=== PATIENT | female | born 1955 | race Hispanic/Latino ===

== ENCOUNTER → 2024-01-12 | Outpatient (CLI) | payer OTHER ==
[2024-01-12 12:25] LABS: CREATININE 0.9 mg/dL (0.5-1.0); POTASSIUM 4.1 mmol/L (3.5-5.1)
== END | disposition home or self-care (01) ==
LOC: LAB 09:08
PROVIDERS: ATTEND Internal Medicine Cardiovascular Disease
DX: I20.0 Unstable angina (principal)
CPT/HCPCS: 36415; 80048

== ENCOUNTER → 2024-01-22 | Outpatient (CLI) | payer OTHER ==
[~2024-01-22] MED LIST: IOHEXOL 350 MG/ML 100ML INFUS..BTL IV ONE
== END | disposition home or self-care (01) ==
LOC: RAH 07:49
PROVIDERS: ATTEND Internal Medicine Cardiovascular Disease
DX: I25.110 Atherosclerotic heart disease of native coronary artery with unstable angina pectoris (principal); M47.815 Spondylosis without myelopathy or radiculopathy, thoracolumbar region; K44.9 Diaphragmatic hernia without obstruction or gangrene
CPT/HCPCS: 75574; Q9967

== ENCOUNTER → 2024-02-12 | Outpatient (CLI) | payer OTHER | END | disposition home or self-care (01) | LOC: SHCH 14:33 | PROVIDERS: ATTEND Internal Medicine Cardiovascular Disease | DX: I08.3 Combined rheumatic disorders of mitral, aortic and tricuspid valves (principal); I20.0 Unstable angina; I11.9 Hypertensive heart disease without heart failure; E11.9 Type 2 diabetes mellitus without complications | CPT/HCPCS: 93306 ==

== ENCOUNTER → 2024-02-20 | Outpatient (CLI) | payer OTHER | END | disposition home or self-care (01) | LOC: SHCH 10:36 | PROVIDERS: ATTEND Internal Medicine Cardiovascular Disease | DX: I73.9 Peripheral vascular disease, unspecified (principal) | CPT/HCPCS: 93925 ==

== ENCOUNTER → 2024-06-19 | Outpatient (CLI) | payer OTHER | END | disposition home or self-care (01) | LOC: LAB 10:30 | PROVIDERS: ATTEND Otolaryngology Plastic Surgery within the Head & Neck | DX: H90.3 Sensorineural hearing loss, bilateral (principal) | CPT/HCPCS: 36415; 82565; 84520 ==

== ENCOUNTER → 2024-06-25 | Outpatient (CLI) | payer OTHER ==
[~2024-06-25] MED LIST changes: +GADOTERATE MEGLUMINE 10 MMOL/20 ML VIAL IV ONE; -IOHEXOL 350 MG/ML 100ML INFUS..BTL IV ONE
== END | disposition home or self-care (01) ==
LOC: RAH 12:48
PROVIDERS: ATTEND Otolaryngology Plastic Surgery within the Head & Neck
DX: H90.3 Sensorineural hearing loss, bilateral (principal)
CPT/HCPCS: 70553; A9575

== ENCOUNTER 2024-11-16 14:36 | Emergency (ER) | payer OTHER ==
[~2024-11-16] VITALS: Ht 152.4 cm; Wt 89.8 kg
[2024-11-16 15:08] VITALS: BP 175/85; PULSE 76; RESP 14; TEMP 98; O2SAT 97
[2024-11-16] MEDS: HYDROcodone/APAP 5/325 1 TAB TABLET PO ONE (15:19)
[2024-11-16] MEDS: ketOROlac 15MG/ML VIAL (15MG/ML) IM ONE (15:19)
[2024-11-16] MEDS ORDERED: METH4TAB3 PO (16:04)
[2024-11-16] MEDS ORDERED: HYDR-4060 PO (16:04)
[2024-11-16] MEDS ORDERED: TIZA-211 PO (16:04)
--- NOTE | 2024-11-16 16:07 | ERN ---
General Chief Complaint: Shoulder Injury/Pain Stated Complaint: SHOULDER PAIN, BACK PAIN Time Seen by MD: 14:40 History of Present Illness Initial Comments 69-year-old female, long history osteoarthritis with flare-ups, history of rheumatoid disease, who presents for right shoulder and right cervical spine pain. Patient reports this is a flare-up of her chronic arthritis pains. She has been using to and has a Cosme and Tylenol for pain. She has been unable to take NSAIDs. She has been using Voltaren gel and Salonpas patches. She has been using ice. She reports that she had an injection into the shoulder about four months ago by floor coverer apprentice, but she feels like it is wearing off causing your pain. She denies any trauma or injury. Neurovascularly intact. No other complaints. Otherwise normal state of health Allergies: Coded Allergies: celecoxib (Unverified Allergy, Unknown, 11/16/24) ibuprofen (Unverified Allergy, Unknown, 11/16/24) Home Meds Active Scripts Tizanidine HCl (Tizanidine HCl) 4 Mg Tablet, 1 TAB PO BID for 30 Days, #60 TAB 0 Refills Prov:BHUMI CORONADO DO 11/16/24 Hydrocodone/Acetaminophen (Hydrocodon-Acetaminophen 5-325) 5 Mg-325 Mg Tablet, 1-2 TAB PO TIDP PRN for pain for 10 Days, #30 TAB 0 Refills Prov:BHUMI CORONADO DO 11/16/24 Methylprednisolone (Medrol) 4 Mg Tab.ds.pk, 1 TAB PO AD for 6 Days, #21 TAB 0 Refills 6 on day 1 then reduce by one tablet daily until gone Prov:BHUMI CORONADO DO 11/16/24 Past Medical History Past Medical History: Arthritis, Asthma, Diabetes-Type II, Hypertension Past Surgical History: Appendectomy, Hysterectomy, Surgical History Other: CYST REMOVAL, LEFT KNEE ROS Dictation CONSTITUTIONAL: No chills, no fever, no weakness, no diaphoresis, no malaise. HEAD/FACE: No signs of trauma. EENT: No eye pain, no blurred vision, no tearing, no double vision, no ear pain, no ear discharge, no nose pain, no nasal congestion, no throat pain, no throat swelling, no mouth pain. RESPIRATORY: No cough, no orthopnea, no SOB, no stridor, no wheezing. CARDIOVASCULAR: No chest pain, no edema, no palpitations, no syncope. GASTROINTESTINAL/ABDOMINAL: No abdominal pain, no constipation, no diarrhea, no nausea, no vomiting. GENITOURINARY: No abnormal discharge, no dysuria, no frequent urination, no hematuria. No complaints of pain in the genitals. MUSCULOSKELETAL: Right arm and shoulder pain INTEGUMENTARY: No change in color, no change in hair/nails, no dryness, no lesion, no lumps, no rash. NEUROLOGICAL/PSYCH: No anxiety, not depressed, no emotional problem, no headache, no numbness, no pre-existing deficit, no history of seizures, no tremors, no weakness. HEMATOLOGIC/LYMPHATIC: Not anemic, no history of blood clots, no apparent bleeding, no bruising, glands not swollen. All Systems Negative, Except as Noted. Physical Exam Physical Exam Dictation VITAL SIGNS: Reviewed. GENERAL APPEARANCE: Alert, oriented x3, no acute distress, obese. HEAD AND FACE: Non-traumatic. EYES: PERRL, pink conjunctivas, eyelid no trauma, anterior chamber clear. EARS: Pinnas intact and no signs of trauma or erythema. Ear canals clear and no discharge. TMs no erythema. NOSE: No discharge, no bleeding. OROPHARYNX: Mouth normal, teeth no caries, tongue pink. Pharynx clear, no erythema. Tonsils no exudates, no abscesses noted. Mucous membrane moist. NECK: Supple, non-tender, no thyromegaly, no masses, no JVD, no bruits. BREAST: Deferred. CHEST: No tenderness, no crepitus, no paradoxical movement, no retractions. LUNGS: Clear, well-ventilated, symmetric, no rales, no wheezing, no rhonchi, no stridor, good breath sounds bilaterally. HEART: Regular rate, regular rhythm, no murmur, no gallops. VASCULAR: No peripheral edema. ABDOMEN: Soft, positive bowel sounds, nondistended, no guarding, nontender, no rebound, no masses no hepatomegaly, no splenomegaly, no Johnston's sign, no hernias. RECTAL: Deferred. GENITAL: Deferred. NEUROLOGICAL: Normal speech, gross motor function intact, gross sensory function intact. MUSCULOSKELETAL: Neck nontender, full range of motion, back nontender, full range of motion. EXTREMITIES: Nontender, full range of motion. SKIN: Color pink, dry, no turgor, no rash, no lacerations, no abrasions, no contusions. LYMPHATICS: Deferred. MDM CC: Right shoulder and right cervical spine right chest wall pain Historian: Patient comorbidities: Significant osteoarthritis, rheumatoid disease Limitations by social determinants of health: None Differential diagnosis: Osteoarthritis flare-up Labs and imaging: None indicated. Patient reports this is a flare-up of the chronic problem. She reports that her medications are not working. Made a plan patient. We will discharge with Medrol Dosepak, Naches tab prescription, and muscle relaxer. Treatment in ED: IM Toradol, p.o. Naches Reassessment: Improvement of symptoms ED Course Orders Procedure Category Date Status Time Ketorolac PHA 11/16/24 Complete Tromethamine 15mg/Ml 15:00 Hydrocodone/Apap PHA 11/16/24 Complete 5/325 (Naches 5/325mg) 15:00 Current Medications Medications (Trade) Dose Ordered Sig/Sj Route PRN Reason Start Time Stop Time Status Last Admin Dose Admin Acetaminophen/ Hydrocodone Bitart (NORco 5/325MG) 1 tab ONCE ONCE PO 11/16/24 15:00 11/16/24 15:01 DC 11/16/24 15:19 Ketorolac Tromethamine (toRADol) 15 mg ONCE ONCE IM 11/16/24 15:00 11/16/24 15:01 DC 11/16/24 15:19 Vital Signs Date Time Temp Pulse Resp B/P (MAP) Pulse Ox O2 Delivery O2 Flow Rate FiO2 11/16/24 15:08 98.1 76 14 175/85 97 Room Air* 0 21 11/16/24 14:45 98.1 76 14 175/85 97 Room Air 0 DX & DISP Disposition: Discharge Departure Impression: Primary Impression: Right shoulder pain Additional Impression: Osteoarthritis Condition: Stable Scripts Tizanidine HCl (Tizanidine HCl) 4 Mg Tablet 1 TAB PO BID for 30 Days, #60 TAB 0 Refills Prov: BHUMI CORONADO DO 11/16/24 Hydrocodone/Acetaminophen (Hydrocodon-Acetaminophen 5-325) 5 Mg-325 Mg Tablet 1-2 TAB PO TIDP PRN for pain for 10 Days, #30 TAB 0 Refills Prov: BHUMI CORONADO DO 11/16/24 Methylprednisolone (Medrol) 4 Mg Tab.ds.pk 1 TAB PO AD for 6 Days, #21 TAB 0 Refills 6 on day 1 then reduce by one tablet daily until gone Prov: BHUMI CORONADO DO 11/16/24 Additional Instructions: Your symptoms are consistent with osteoarthritis. I have prescribed tizanidine (Zanaflex) 4 mg tabs to use as needed as a muscle r elaxant. You can take 2 mg every 8 hours as needed. You can increase this dosing to 4 mg as needed as tolerated. The max dose for this medication is 36 mg per day divided into three or four doses. Please note that if you do stop taking this medication you will need to taper down the dosing so that you do not withdrawal. I have prescribed Naches tabs (hydrocodone/acetaminophen) to use as needed for pain. You can take 1-2 tabs every 6 hours as needed. I have prescribed a Medrol Dosepak. These are anti-inflammatory steroids. Please follow the instructions of the pack for the next six days. As we discussed, I recommend he follow up with your primary doctor. You may benefit from a referral to a pain specialist. You can also follow up with your floor coverer apprentice for re-evaluation for a possible joint injection in the right shoulder. Please return to the emergency department if you have any concerns. Referrals: YOMAIRA NICE DO (PCP) BHUMI CORONADO DO Nov 16, 2024 16:07
== END 2024-11-16 16:54 | disposition home or self-care (01) ==
LOC: EDH 14:36
DX: M25.511 Pain in right shoulder (principal); M19.011 Primary osteoarthritis, right shoulder; E11.9 Type 2 diabetes mellitus without complications; I10 Essential (primary) hypertension; J45.909 Unspecified asthma, uncomplicated; Z88.6 Allergy status to analgesic agent; Z90.49 Acquired absence of other specified parts of digestive tract; Z90.710 Acquired absence of both cervix and uterus
CPT/HCPCS: 99283; 96372; J1885

== ENCOUNTER 2025-04-15 02:58 | Emergency (ER) | payer OTHER ==
[~2025-04-15] VITALS: Ht 152.4 cm; Wt 85.7 kg
[~2025-04-15 02:58] MED LIST changes: -GADOTERATE MEGLUMINE 10 MMOL/20 ML VIAL IV ONE; +HYDR-4060 PO; +METH4TAB3 PO; +TIZA-211 PO
--- NOTE | 2025-04-15 03:48 | ERN ---
General Chief Complaint: Shortness of Breath Stated Complaint: C/O SOB,FEELING FAINT, DIZZINESS Time Seen by MD: 03:32 History of Present Illness Initial Comments 69-year-old female who woke up from sleep tonight feeling that something just was not right. She checked her blood pressure and it was okay she checked her sugars and they were okay. She had two puffs with her albuterol which did not r eally help her. She comes in still with feelings of shortness of breath and lightheadedness. She states she had an echo recently that showed a leaky valves. She also has spinal stenosis with right arm numbness. Allergies: Coded Allergies: celecoxib (Unverified Allergy, Unknown, 11/16/24) ibuprofen (Unverified Allergy, Unknown, 11/16/24) Home Meds Active Scripts Tizanidine HCl (Tizanidine HCl) 4 Mg Tablet, 1 TAB PO BID for 30 Days, #60 TAB 0 Refills Prov:BHUMI CORONADO DO 11/16/24 Hydrocodone/Acetaminophen (Hydrocodon-Acetaminophen 5-325) 5 Mg-325 Mg Tablet, 1-2 TAB PO TIDP PRN for pain for 10 Days, #30 TAB 0 Refills Prov:BHUMI CORONADO DO 11/16/24 Methylprednisolone (Medrol) 4 Mg Tab.ds.pk, 1 TAB PO AD for 6 Days, #21 TAB 0 Refills 6 on day 1 then reduce by one tablet daily until gone Prov:BHUMI CORONADO DO 11/16/24 Past Medical History Past Medical History: Arthritis, Asthma, Diabetes-Type II, High Cholesterol, Hypertension Medical History Other: Spinal stenosis Past Surgical History: Appendectomy, Hysterectomy, Other Surgical History Other: CYST REMOVAL, LEFT KNEE Constitutional: (-) chills, (-) diaphoresis, (-) fever, (-) malaise, (-) weakness, (-) other documentation EENTM: (-) eye pain, (-) blurred vision, (-) tearing, (-) double vision, (-) ear pain, (-) ear discharge, (-) nose pain, (-) nose congestion, (-) throat pain, (-) Throat swelling, (-) mouth pain, (-) tooth pain, (-) mouth swelling, (-) other documentation Respiratory: (+) short of breath Cardiovascular: (-) chest pain, (-) edema, (-) palpitations, (-) syncope, (-) dyspnea on exertion, (-) other documentation Gastrointestinal/Abdominal: (-) nausea, (-) vomiting, (-) diarrhea, (-) abdominal pain, (-) abdominal distention, (-) constipation, (-) rectal bleeding, (-) dark stool/melena, (-) other documentation Musculoskeletal: (-) Neck pain, (-) back pain, (-) Flank Pain, (-) joint pain, (-) joint swelling, (-) muscle pain, (-) muscle stiffness, (-) gout, (-) other documentation Skin: (-) laceration, (-) contusion, (-) abrasion, (-) abscess, (-) rash, (-) change in color, (-) change in hair, (-) change in nails, (-) diaphoresis, (-) dryness, (-) other documentation Neuro: (-) altered mental status, (-) headache, (-) syncope, (-) paralysis, (-) numbness, (-) seizure, (-) pre-existing deficit, (-) tremors, (-) weakness, (-) dizziness, (-) slurred speech, (-) vertigo, (-) other documentation Physical Exam General Appearance: (+) no apparent distress Orientation: (+) alert, (+) oriented x 3 Head/Face Trauma: No Eye: bilateral eye normal inspection, bilateral eye PERRL, bilateral eye EOMI Ear, Nose, Throat: (+) hearing grossly normal, (+) normal ENT inspection Neck: (+) normal inspection, (+) supple Respiratory: (+) chest non-tender, (+) lungs clear, (+) well ventilated Heart: (+) regular, (+) no gallop Vascular: (+) no edema, (+) normal peripheral pulse Gastrointestinal: (+) soft, (+) non-tender, (+) bowel sound present Results Laboratory and Microbiology Lab and Micro Result Laboratory Tests Test 04/15/25 03:30 04/15/25 05:30 White Blood Count 9.1 K/uL (4.8-10.8) Red Blood Count 4.23 MIL/uL (4.00-5.50) Hemoglobin 12.2 g/dL (12.0-16.0) Hematocrit 36.7 % (36-48) Mean Corpuscular Volume 86.8 fL (79-99) Mean Corpuscular Hemoglobin 28.8 pg (27.0-33.0) Mean Corpuscular Hemoglobin Concent 33.2 g/dL (32.0-36.0) Red Cell Distribution Width 12.7 % (11.0-15.5) Platelet Count 289 K/uL (130-400) Mean Platelet Volume 10.1 fL (7.5-10.5) Immature Granulocyte % (Auto) 0.4 % (0-1) Neutrophils (%) (Auto) 69.8 % (40.0-77.0) Lymphocytes (%) (Auto) 19.3 % (21.0-51.0) L Monocytes (%) (Auto) 7.9 % (3.0-13.0) Eosinophils (%) (Auto) 1.8 % (0.0-8.0) Basophils (%) (Auto) 0.8 % (0.0-5.0) Neutrophils # (Auto) 6.4 K/uL (1.8-7.7) Lymphocytes # (Auto) 1.8 K/uL (1.0-4.8) Monocytes # (Auto) 0.7 K/uL (0.1-1.0) Eosinophils # (Auto) 0.16 K/uL (0.00-0.70) Basophils # (Auto) 0.07 K/uL (0.00-0.20) Absolute Immature Granulocyte (auto 0.04 K/uL (0-1) Nucleated Red Blood Cells 0.0 % (0.0-0.19) Sodium Level 136 mmol/L (136-145) Potassium Level 4.2 mmol/L (3.5-5.1) Chloride Level 101 mmol/L (101-111) Carbon Dioxide Level 25 mmol/L (21-32) Blood Urea Nitrogen 31 mg/dL (7-18) H Creatinine 0.9 mg/dL (0.5-1.0) Glomerular Filtration Rate Calc 70 mL/min (>90) Random Glucose 126 mg/dL (70-105) H Total Calcium 9.0 mg/dL (8.5-10.1) Troponin I High Sensitivity 5 ng/L (4-50) B-Type Natriuretic Peptide 81 pg/mL (0-100) Influenza Type A Antigen Negative For Type A Influenza Type B Antigen Negative For Type B SARS-CoV-2 Antigen (Rapid) PRESUMPTIVE NEGATIVE Group A Streptococcus Rapid negative (NEGATIVE) Urine Color Light-Yellow (YELLOW) Urine Appearance CLEAR (CLEAR) Urine pH 5.0 (5.0-8.0) Urine Specific [place] 1.010 (1.001-1.031) Urine Protein NEGATIVE mg/dL (NEGATIVE) Urine Glucose (UA) NEGATIVE mg/dL (NEGATIVE) Urine Ketones NEGATIVE mg/dL (NEGATIVE) Urine Occult Blood NEGATIVE (NEGATIVE) Urine Nitrate NEGATIVE (NEGATIVE) Urine Bilirubin NEGATIVE mg/dL (NEGATIVE) Urine Urobilinogen 0.2 mg/dL (0.2-1.0) Urine Leukocyte Esterase NEGATIVE Alexander/uL MDM MDM: Differential diagnosis: CHF, acute SC, sleep apnea, upper respiratory tract i nfection, dehydration, UTI. Rationale: Tests considered and ordered secondary to shared decision making include: Previous outside records reviewed: Old ER visits. Risk of complication and/or morbidity or mortality of patient management: None Medications-Per medication reconciliation Need for hospitalization: Patient does meet criteria for hospitalization. Need for emergency major/minor surgery: No There are no social concerns with this patient. Prescription drug management Prescriptions will include symptomatic care Patient's prior external medical records from other ER visits were reviewed by me as indicated. Prior testing and results from previous visits were reviewed. Prior tests were taken into account with medical decision making and resource utilization, independent historian/historians were used to obtain complete medical history. I independently interpreted the test that were performed, results were reviewed by me and considered findings on radiology if ordered. Laboratory and radiological studies for the patient are all normal except for a slight elevation of her BUN. Nasal swabs are negative for COVID strep and inf luenza. Cardiac enzymes also normal. Discussing with the patient about what felt abnormal, it seems she feels her sinuses are clogged and that is why she has trouble getting deep breaths. I examined her nares and they are slightly red and dry. The patient just urinated we will do a urinalysis and if it is normal send her home. Patient's UA is normal I will discharge her ED Course Orders Procedure Category Date Status Time 12 Lead Ekg Tracing- EKG 04/15/25 Logged Technical 03:44 B-Type Natriuretic LAB 04/15/25 Complete Peptide 03:44 Basic Metabolic Panel LAB 04/15/25 Complete 03:44 Cbc With Differential LAB 04/15/25 Complete 03:44 Troponin I High LAB 04/15/25 Complete Sensitivity 03:44 Rapid (Group A Strep) LAB 04/15/25 Complete 03:44 Covid19 (Sars Antigen LAB 04/15/25 Complete Rapid) 03:44 Influenza Type A & B, LAB 04/15/25 Complete Rapid 03:44 Lactated Ringers PHA 04/15/25 Complete 1000ml (Lactated 03:44 Chest 1vw RAD 04/15/25 Resulted 03:56 Urinalysis Profile LAB 04/15/25 Complete 05:52 Current Medications Medications (Trade) Dose Ordered Sig/Sj Route PRN Reason Start Time Stop Time Status Last Admin Dose Admin Lactated Ringer's (Lactated Ringers 1000ml) 1,000 ml BOLUS STAT IV 04/15/25 03:44 04/15/25 03:49 DC 04/15/25 04:01 Vital Signs Date Time Temp Pulse Resp B/P (MAP) Pulse Ox O2 Delivery O2 Flow Rate FiO2 04/15/25 03:41 98.2 66 18 155/64 98 Room Air* 0 21 04/15/25 03:03 97.3 59 20 151/89 97 Room Air DX & DISP Disposition: Discharge Departure Impression: Primary Impression: Tenderness over maxillary sinus Additional Impressions: Tenderness over frontal sinus, Inflamed nasal mucosa Condition: Stable Additional Instructions: Your laboratory studies today showed no cardiac problems, a normal complete blood count and a normal chemistry except for a slight increase in her blood urea nitrogen which may indicate slight dehydration. Your cardiac enzymes are normal your urine is normal. I encouraged her to drink fluids every day. Drink enough that your urine runs clear at least once a day. You can buy [id number] nasal spray that comes in a spray can to irrigate your nasal cavities twice a day. You can also take Sudafed if your nasal cavities feel stuffy and painful from pressure. Referrals: YOMAIRA NICE DO (PCP) SHAKILA MARCIAL MD Apr 15, 2025 03:48
[2025-04-15 03:56] LABS: IMMATURE GRANULOCYTE ABSOLUTE 0.04 K/uL (0-1); NUCLEATED RED BLOOD CELLS 0.0 % (0.0-0.19); PLATELET COUNT (AUTO) 289 K/uL (130-400); RED BLOOD CELL COUNT(AUTO) 4.23 MIL/uL (4.00-5.50); RED CELL DISTRIBUTION WIDTH 12.7 % (11.0-15.5); WHITE BLOOD COUNT (AUTO) 9.1 K/uL (4.8-10.8)
[2025-04-15 04:01] LABS: CREATININE 0.9 mg/dL (0.5-1.0); GLOMERULAR FILTR. RATE CALC 70.0 mL/min (>90); GLUCOSE,RANDOM 126.0 mg/dL (70-105); SODIUM SERUM 136.0 mmol/L (136-145); UREA NITROGEN, BLOOD 31.0 mg/dL (7-18)
[2025-04-15] MEDS: LACTATED RINGERS 1000ML IV STA (04:01)
[2025-04-15 04:07] LABS: RAPID GROUP A STREP negative (NEGATIVE)
[2025-04-15 04:17] LABS: COVID19 (SARS ANTIGEN RAPID) PRESUMPTIVE NEGATIVE (NEGATIVE); INFLUENZA TYPE A Negative For Type A (NEGATIVE); INFLUENZA TYPE B Negative For Type B (NEGATIVE)
--- NOTE | 2025-04-15 04:53 | HMCIMG ---
EXAM: CR Chest, 2 views CLINICAL HISTORY: Shortness of breath. COMPARISON: Chest radiograph dated 07/15/2010. FINDINGS: The lungs show no infiltrates or other acute findings. No pleural effusion or pneumothorax. The cardiomediastinal silhouette is within normal limits. Mild atherosclerotic aorta. No acute osseous abnormality. IMPRESSION: No acute cardiopulmonary process is evident. No interval changes. /[facility] [place]
[2025-04-15 06:05] LABS: APPEARANCE,URINE CLEAR (CLEAR); GLUCOSE, URINE (UA) NEGATIVE (NEGATIVE); LEUKOCYTE ESTERASE ,URINE NEGATIVE Leu/uL (NEGATIVE); NITRATE,URINE NEGATIVE (NEGATIVE); OCCULT BLOOD,URINE NEGATIVE (NEGATIVE)
[2025-04-15 06:09] LABS: ADD UA MICROSCOPIC NO
--- NOTE | 2025-04-15 06:21 | EKG ---
[facility] Test Date: 2025-04-15 Test Time: 03:51:02 Pat Name: KEVIN EMERSON Department: ED Room: Gender: F [employer]: TAMARA : [id number] Requested By: SHAKILA MARCIAL Order Number: [id number] Reading MD: Tevin Romeo Measurements Intervals [place] Rate: 60 P: 49 SD: 187 QRS: 8 QRSD: 106 T: -2 QT: 423 QTc: 425 Interpretive Statements Sinus rhythm Probable left ventricular hypertrophy No previous ECG available for comparison Electronically Signed On 04-15-2025 15:37:36 CDT by Tevin Romeo Please click the below link to view image of tracing.
[2025-04-15 06:24] VITALS: BP 142/60; PULSE 62; RESP 18; TEMP 98.3; O2SAT 98
== END 2025-04-15 18:25 | disposition home or self-care (01) ==
LOC: EDH 02:58
DX: J32.0 Chronic maxillary sinusitis (principal); M19.90 Unspecified osteoarthritis, unspecified site; E11.9 Type 2 diabetes mellitus without complications; E78.00 Pure hypercholesterolemia, unspecified; I10 Essential (primary) hypertension; J45.909 Unspecified asthma, uncomplicated; Z88.6 Allergy status to analgesic agent; Z90.49 Acquired absence of other specified parts of digestive tract; Z90.710 Acquired absence of both cervix and uterus; Z20.822 Contact with and (suspected) exposure to COVID-19
CPT/HCPCS: 99285; 71045; 87426; 84484; 80048; 83880; 85025; 87880; 87804 ×2; 81003; 36415; 93005; J7120